=== PATIENT | female | born 1960 | race Caucasian/White ===

== ENCOUNTER 2020-08-26 14:07 | Outpatient (CLI) | payer BC | END 2020-08-26 14:08 | disposition home or self-care (01) | LOC: CSHMAMMO 14:07 | PROVIDERS: ATTEND Obstetrics & Gynecology | DX: Z12.31 Encounter for screening mammogram for malignant neoplasm of breast (principal) | CPT/HCPCS: 77063; 77067 ==

== ENCOUNTER 2021-08-27 11:41 | Outpatient (CLI) | payer BC | END 2021-08-27 11:42 | disposition home or self-care (01) | LOC: CSHMAMMO 11:41 | PROVIDERS: ATTEND Obstetrics & Gynecology | DX: Z12.31 Encounter for screening mammogram for malignant neoplasm of breast (principal) | CPT/HCPCS: 77063; 77067 ==